=== PATIENT | male | born 1935 | race Caucasian/White ===

== ENCOUNTER 2016-05-17 06:48 | Day surgery (SDC) | payer MEDICARE, BC ==
[~2016-05-17] VITALS: Ht 165.1 cm; Wt 68.2 kg
[2016-05-17] VITALS (7 sets, daily range): BP systolic 75–144; BP diastolic 68–80; PULSE 66–71; RESP 16–20; TEMP 97.5–97.7; O2SAT 97–99
[~2016-05-17 06:48] MED LIST: ADVA250A INH; CELL500T PO; DOFE125 PO; ENAL20TA PO; ETHA25TA PO; FERR324T4 PO; FOLI5CAP PO; GLIP5 PO; METF-324 PO; METR250T15 PO; MICA80TA3 PO; POTASSIUM LIQUID OR; PRAD150C PO; PRAV10 PO; PRED1 PO; PROS5TAB2 PO; PROT40TA PO; PYRI25TA9 PO; TOPR50TA PO; [UNRECOGNIZED DRUG - CODE] OR
[2016-05-17] MEDS ORDERED: ACYC400T PO (07:36)
[2016-05-17] MEDS ORDERED: CYCL25CA4 PO (07:36)
[2016-05-17] MEDS ORDERED: METO25TA3 PO (07:36)
[2016-05-17] MEDS ORDERED: FINA5TAB2 PO (07:36)
[2016-05-17] MEDS ORDERED: MYCO500T PO (07:36)
[2016-05-17] MEDS ORDERED: METF1000 PO (07:36)
[2016-05-17] MEDS ORDERED: PRED5TAB PO (07:36)
[2016-05-17] MEDS ORDERED: GLIP1TAB60 PO (07:36)
[2016-05-17] MEDS ORDERED: ENAL10TA PO (07:36)
[2016-05-17] MEDS ORDERED: VITA100064 PO (07:36)
[2016-05-17] MEDS ORDERED: DOFE250 PO (07:36)
[2016-05-17] MEDS ORDERED: FAMO40TA PO (07:36)
[2016-05-17] MEDS ORDERED: POVIDONE IODINE 5% (ANTISEPSIS KIT) 4 APPLICATIONS EACH NARE SCH (07:45)
[2016-05-17] MEDS ORDERED: SODIUM CHLORIDE 0.9% 1000 ML IV SCH (07:45)
[2016-05-17] MEDS ORDERED: CHLORHEXIDINE GLUCONATE 2 % 1 PACK (2 CLOTHS) TOPICAL SCH (07:45)
[2016-05-17] MEDS ORDERED: VANCOMYCIN 1000 MG/NS 250 ML - implanted port/tunneled catheter IV SCH ×2 (07:45)
[2016-05-17 08:18] LABS: APTT (PATIENT) 28.7 SEC (24.3-30.1); PROTHROMBIN TIME - PATIENT 10.7 SEC (9.8-11.6)
[2016-05-17] MEDS ORDERED: MIDAZOLAM HCL 5 MG/5 ML VIAL ONE (08:31)
[2016-05-17] MEDS ORDERED: fentaNYL CITRATE 250 MCG/5 ML AMP ONE (08:31)
[2016-05-17] MEDS ORDERED: LIDOCAINE 1%/EPINEPHrine 1:100,000 SOLN 20 ML VIAL ONE (08:38)
[2016-05-17] MEDS ORDERED: SODIUM CHLORIDE 0.9% FLUSH 5 ML FLUSH IVF PRN (10:45)
--- NOTE | 2016-05-17 10:45 | PD.RAD ---
Post Procedure Progress Note Pre Procedure Diagnosis: (1) Multiple myeloma Post Procedure Diagnosis: (1) Multiple myeloma Procedure Date: May 17, 2016 Supervising Radiologist: Art Tejada JR Proceduralist/Assist: Umberto Delgadillo, RT(R), Clara Garcia RT(R)(CV) Anesthesia: Conscious Sedation Plan of Activity Patient to Unit: ROPU Patient Condition: Good See PACS Report for procedural detail/treatment Central Venous Access Device Procedure 1 Left Internal Jugular Infusaport Placement single lumen [place]: 8 Findings: Very difficult case due to highly tortuous vasculature. Tip low in right atrium to compensate for this. Port functions well and is ready for use. Plan F/U with IR or a physician in 10-14 days. Jr. Terrell,Art Whittington MD May 17, 2016 10:45
--- NOTE | 2016-05-17 14:08 | RADRPT ---
EXAM DATE/TIME: 05/17/2016 07:14 [facility] COMPARISON: No previous studies available for comparison. INDICATIONS : Patient presents with multiple myeloma in need of port placement for chemotherapy treatment. Patient has a right-sided pacing device. MEDICAL HISTORY : Hx of multiple myeloma HTN DM GERD Hx GI bleed Afib Heart failure [place] CHF Osteoporosis SURGICAL HISTORY : Pacemaker Aortic valve replacement Hernia repair Bone marrow biopsy Renal transplant ENCOUNTER: Initial ACUITY: >1 year PAIN SCORE: 0/10 LOCATION: N/A FLUORO TIME: 18.9 minutes IMAGE SERIES: 0 SEDATION TIME: 110 minutes ACCESS: Left internal jugular vein SEDATION: 1.) 5 mg midazolam (Versed) IV 2.) 250 mcg fentanyl (Sublimaze) IV Prophylactic antibiotics were administered with appropriate pre-procedure timing. Vancomycin within 2 hours of procedure, Ancef (or alternative) within 1 hour of procedure. DEVICE: 1. 8 Scottish single lumen Bard Power Port PROCEDURE : 1. Continuous pulse oximetry and EKG monitoring. 2. Intravenous conscious sedation. 3. Ultrasound guidance for venous access. 4. Fluoroscopic guided implantable central venous port placement. The patient was placed supine. The neck was prepped in sterile fashion. Full sterile technique was u sed, including cap, mask, sterile gloves and gown, and a large sterile sheet. Hand hygiene and 2% ch lorhexidine Betadine was utilized per protocol for cutaneous antisepsis with appropriate dry time for site. The skin and subcutaneous tissues were infiltrated with local anesthetic solution. Under direct ultrasound guidance, central venous access was accomplished in the left internal jugular vein. The ultrasound images depicting access guidance were stored and saved to PACS for permanent r ecord. A subcutaneous pocket was created using blunt dissection. The port was introduced to the poc ket. The catheter tubing was fed through a subcutaneous tunnel to the venotomy site. The catheter t ubing was cut to a suitable length and then was introduced through a valved Peel-Away sheath and posi tioned with catheter tubing tip at the cavo-atrial junction level. With removal of the peel-away hanley th the tortuosity of the venous structures cause the catheter tip to retract up into the brachiocepha lic vein. A new peel-away sheath was placed in a longer catheter positioned low within the right atri um. Anchoring Vicryl sutures were utilized for the port. The pocket incision was closed with subcutic ular Vicryl suture. Steri-Strips were applied. The port was flushed and locked with heparin solutio n per protocol. Sterile dressing was applied to the site. The patient tolerated the procedure well. Conscious sedation was performed with the prescribed dosages and duration as above in the presence of an independent trained radiology nurse to assist in the monitoring of the patient. EKG and oximetry remained stable throughout the procedure. The patient tolerated the procedure well and there were no complications. The patient was sent to post anesthesia recovery in stable condition. CONCLUSION: Ultrasound and fluoroscopic guided implanted central venous port catheter placement as described in d etail above. An 8 Scottish Power port was placed. This procedure was quite difficult given the tortuos ity of the patient's venous structures. Art Tejada Jr., MD on May 17, 2016 at 14:03 Board Certified Radiologist. This report was verified electronically.
== END 2016-05-17 13:30 | disposition home or self-care (01) ==
LOC: HROP 06:48 → HRIP 06:49 → HROP 12:30
PROVIDERS: ATTEND Internal Medicine Hematology & Oncology
DX: Z45.2 Encounter for adjustment and management of vascular access device (principal); C90.00 Multiple myeloma not having achieved remission; E11.9 Type 2 diabetes mellitus without complications; I10 Essential (primary) hypertension; I48.91 Unspecified atrial fibrillation; I50.9 Heart failure, unspecified; K21.9 Gastro-esophageal reflux disease without esophagitis; M81.0 Age-related osteoporosis without current pathological fracture; Z95.0 Presence of cardiac pacemaker; Z95.2 Presence of prosthetic heart valve
CPT/HCPCS: 36561; 76937; 77001; 85610; 85730; C1769; C1788; C1887; C1894; J1642; J2250; J3010; J3370; J7030; J7050

== ENCOUNTER 2016-05-29 14:50 | Day surgery (SDC) | payer MEDICARE, BC ==
[~2016-05-29 14:50] MED LIST changes: +ACYC400T PO; -ADVA250A INH; -CELL500T PO; +CYCL25CA4 PO; -DOFE125 PO; +DOFE250 PO; +ENAL10TA PO; -ENAL20TA PO; -ETHA25TA PO; +FAMO40TA PO; -FERR324T4 PO; +FINA5TAB2 PO; -FOLI5CAP PO; +GLIP1TAB60 PO; -GLIP5 PO; -METF-324 PO; +METF1000 PO; +METO25TA3 PO; -METR250T15 PO; -MICA80TA3 PO; +MYCO500T PO; -POTASSIUM LIQUID OR; -PRAD150C PO; -PRAV10 PO; -PRED1 PO; +PRED5TAB PO; -PROS5TAB2 PO; -PROT40TA PO; -PYRI25TA9 PO; -TOPR50TA PO; +VITA100064 PO
[2016-05-29 15:15] VITALS: BP 123/71; PULSE 71; RESP 19; TEMP 97.3; O2SAT 100
--- NOTE | 2016-05-30 08:00 | RADRPT ---
EXAM DATE/TIME: 05/29/2016 00:00 [facility] COMPARISON : No previous studies available for comparison. INDICATIONS : Stated bleeding at port site OBJECTIVE: Temperature: 97 Heart Rate: 71 Blood Pressure: 123/71 Respiratory: 18 Oximetry: 97 HISTORY OF PRESENT ILLNESS: The patient presents for evaluation of bleeding at his port site. This port was placed 12 days ago. T he patient denies any fever or chills. The port has been accessed and is functioning well. He states there is swelling about the Port-A-Cath which has improved from its initial. He noticed bloody draina ge from the port incision site. No purulent material. PAST MEDICAL HISTORY : Plasma cell dyscrasia PAST SURGICAL HISTORY : Port placement ALLERGIES: Ancef Penicillin Sulfa Amiodarone,hctz,latex PHYSICAL EXAMINATION: General: Patient is awake and alert sitting comfortably in a chair. He is in no acute distress. Chest: Fairly extensive ecchymosis is seen overlying the left chest tracking down from the port. There is a hematoma surrounding the hub of the port. The incision is clean and dry. No drainage is identified. T his is despite manipulation of the port and hematoma. No erythema. ASSESSMENT: Fairly extensive hematoma and ecchymosis involving the left-sided Port-A-Cath. This is not surprising given the required manipulation at the time and the port placement. No signs of infection. PLAN: The ecchymosis and hematoma showed slowly resolve over the ensuing couple of weeks. If the patient de velops any signs of infection or has any other issues he was instructed to contact us. TIME SPENT: 15 minutes Art Tejada Jr., MD on May 30, 2016 at 7:49 Board Certified Radiologist. This report was verified electronically.
== END 2016-05-29 16:00 | disposition home or self-care (01) ==
LOC: HROP 14:50 → HRIP 14:52 → HROP 16:00
PROVIDERS: ATTEND Radiology Body Imaging
DX: Z45.2 Encounter for adjustment and management of vascular access device (principal); C90.00 Multiple myeloma not having achieved remission
CPT/HCPCS: 99212; G0463